=== PATIENT | female | born 1995 ===

== ENCOUNTER → 2017-01-05 | Outpatient (CLI) | payer OTHER ==
--- NOTE | 2017-01-05 18:52 | DIAGNOSTIC IMAGING REPORT ---
RIGHT KNEE 3 VIEWS CLINICAL HISTORY: Right knee pain following injury. COMPARISON: None FINDINGS: Alignment of the right knee is anatomic. There is no acute fracture. There is no joint effusion. Joint spaces are preserved. IMPRESSION: No acute fracture or joint effusion of the right knee. Electronically signed by: Gumaro Pickett M.D. 01/05/2017 6:51 PM Dictated Date/Time: 01/05/2017 6:50 PM
== END | disposition home or self-care (01) ==
LOC: C.RAD 17:16
PROVIDERS: ATTEND Family Medicine
DX: S89.91XA Unspecified injury of right lower leg, initial encounter (principal); X58.XXXA Exposure to other specified factors, initial encounter; O92.6 Galactorrhea

== ENCOUNTER → 2017-05-22 | Outpatient (CLI) | payer OTHER ==
[2017-05-22 15:37] LABS: BASO % 0.2 %; BASO ABS # 0.02 K/uL (0-0.2); COMPLETE YES; EOS % 1.8 %; HEMATOCRIT 39.4 % (37-47); IG% 0.2 %; LYMPH % 23.3 %; MEAN CELL VOLUME 80.7 fL (80-100); MEAN CORPUSCULAR HEMOGLOBIN 26.6 pg (25-34); MEAN PLATELET VOLUME 10.9 fL (7.4-10.4); MONO % 5.7 %; NEUT % 68.8 %; PLATELET COUNT 228 K/uL (130-400); RED BLOOD COUNT 4.88 M/uL (4.2-5.4); WHITE BLOOD COUNT 8.14 K/uL (4.8-10.8)
[2017-05-22 16:12] LABS: BLOOD UREA NITROGEN 9 mg/dl (7-18); BUN/CREATININE RATIO 13.3 (10-20); CALCIUM 8.6 mg/dl (8.5-10.1); CARBON DIOXIDE 25 mmol/L (21-32); CHLORIDE 106 mmol/L (98-107); CREATININE 0.65 mg/dl (0.60-1.20); GLUCOSE 83 mg/dl (70-99); GLUCOSE,FASTING 83 mg/dl (70-99); POTASSIUM 3.8 mmol/L (3.5-5.1); SODIUM 139 mmol/L (136-145)
[2017-05-22 16:22] LABS: CHOLESTEROL 189 mg/dl (0-200); CHOLESTEROL/HDL RATIO 3.9; HDL CHOLESTEROL 49 mg/dl; LDL CHOLESTEROL CALCULATED 127 mg/dl; TRIGLYCERIDES 67 mg/dl (0-150); VERY LOW DENSITY LIPOPROT CALC 13 mg/dl
== END | disposition home or self-care (01) ==
LOC: C.LAB 14:08
PROVIDERS: ATTEND Psychiatry & Neurology Psychiatry
DX: Z79.899 Other long term (current) drug therapy (principal); F32.9 Major depressive disorder, single episode, unspecified; F43.10 Post-traumatic stress disorder, unspecified; F90.2 Attention-deficit hyperactivity disorder, combined type

== ENCOUNTER 2017-12-17 11:02 | Observation (INO) | payer OTHER ==
[2017-12-17] VITALS (7 sets, daily range): BP systolic 105–165; BP diastolic 66–97; PULSE 85–105; TEMP 36.4–36.8; O2SAT 92–100; Ht 157.5 cm; Wt 123.0 kg
[~2017-12-17] VITALS: Ht 157.5 cm; Wt 123.0 kg
[2017-12-17] MEDS ORDERED: GLC/500 PO (11:25)
[2017-12-17] MEDS ORDERED: ARIP30TA3 PO (11:25)
[2017-12-17] MEDS ORDERED: CNC/36 PO (11:25)
--- NOTE | 2017-12-17 12:07 | EMERGENCY ROOM VISIT NOTE ---
ED Visit Note First contact with patient: 11:18 CHIEF COMPLAINT: Mascara tube in my bladder HISTORY OF PRESENT ILLNESS: This 22-year-old female patient presents to the emergency department approximately 10 hours after masturbating with a mascara tube. The patient states she was "messing with my urethra, when the mascara tube got inserted into the urethra and got stuck within the bladder. The patient states she is passing urine, and reports only mild suprapubic abdominal pain. She states there is no way could be in the vagina, and she is certain it is in the urethra/bladder. She continues to pass urine and stool. She denies any pain or pressure with urination. She denies any blood and she denies any bleeding or trauma. She denies history of similar incident in the past. REVIEW OF SYSTEMS: A 6 system review of systems was performed with positives and pertinent negatives listed in the history of present illness. All other systems were reviewed and are negative. ALLERGIES: Tree nuts MEDICATIONS: Metformin, Abilify, Concerta PMH: ADHD, PTSD, obesity, anxiety, depression SOCIAL HISTORY: The patient lives locally. She denies drug, alcohol, tobacco use. PHYSICAL EXAM: VITALS: Vitals are noted on the nurse's note and reviewed by myself. Vital signs stable. GENERAL: This is a 22-year-old black female, in no acute distress, nondiaphoretic, well-developed well-nourished. HEAD - NC/AT. NECK - Neck with FROM. Supple to. No lymphadenopathy noted. No nuchal rigidity. LUNGS - Chest wall symmetric without accessory muscle use, intercostals retractions, or central cyanosis. Normal vesicular breath sounds CTA B/L. No wheezes, rales, or rhonchi appreciated. CARDIAC - RRR with S1/S2. No murmur, rubs, or gallops appreciated. ABDOMEN - Abdominal contour without without pulsations or visible masses. BS normoactive all four quadrants. Mild suprapubic tenderness to palpation appreciated. No palpable masses, hepatosplenomegaly, or ascites noted. MONKEY KEEPER - (An RN nurse lost charge card clerk was present throughout the entire MONKEY KEEPER procedure.) SPECULUM EXAM: - Water-soluble lubricant was applied to the plastic speculum and inserted into the vagina in a downward fashion towards the location of the cervix. When resistance was met, the speculum was opened to visualize the cervix. The cervical os was closed and no drainage. No lesions, masses, or purulent discharge noted. No FB noted. The speculum was slowly removed to visualize the vaginal russell. No lesions, masses, or excoriations noted. Pt tolerated the procedure well and voiced no discomfort throughout the procedure. - URETHRA - No erythema, edema, discharge, or blood noted PSYCH - A&Ox3 and cooperates fully with examiner. Pt is very pleasant and interacts well with examiner. RADIOLOGY: KUB HISTORY: mascara tube (FB) (urethra?) COMPARISON: None. FINDINGS: The bowel gas pattern is unremarkable. There are no dilated loops of small bowel to suggest an obstruction. No renal calculi. No ureteral calculi. No pneumoperitoneum or pneumatosis. There is a 12.7 x 2.2 cm tube like foreign body overlying the mid pelvis. IMPRESSION: There is a 12.7 x 2.2 cm tube like foreign body overlying the mid pelvis. The exact location is difficult to confirm but could be within the bladder, rectum, or possibly the vagina. Electronically signed by: Mio Mooney M.D. 12/17/2017 12:06 PM Dictated Date/Time: 12/17/2017 12:[facility] NO IV/ORAL CONT (CT) CLINICAL HISTORY: Evaluate location of foreign body. TECHNIQUE: Multiaxial CT images of the pelvis performed without the use of contrast. COMPARISON STUDY: KUB 12/17/2017. FINDINGS: There is an 11 x 2 cm foreign body located entirely within the bladder. There is mild fast stranding adjacent to the left anterior bladder dome. However, there is no extraluminal fluid or gas to suggest a perforation at this time. No pelvic free fluid. The uterus and ovaries are unremarkable. No pelvic lymphadenopathy. Normal appendix. The visualized loops of bowel show no wall thickening or obstruction. IMPRESSION: An 11 x 2 cm foreign body located entirely within the bladder. There is mild fat stranding adjacent to the left anterior bladder dome. However, there is no extraluminal fluid or gas at this time to suggest a perforation. Electronically signed by: Mio Mooney M.D. 12/17/2017 1:02 PM Dictated Date/Time: 12/17/2017 12:52 PM EMERGENCY DEPARTMENT COURSE: The patient was seen and evaluated as above. Vaginal examination performed to verify no foreign body within the vagina. When no foreign body noted, KUB performed. This was reviewed by myself and Dr. Mooney as above. I did consult with Dr. Mooney regarding the need for further imaging and he did recommend a non-contrast CT scan of the pelvis to verify location of the FB. CT scan performed and reviewed by myself and the radiologist as above. I did discuss the findings with the patient. I consulted urology, and spoke with Dr. Dunham, who requested IV Rocephin, preop labs, and n.p.o. status for the patient. These were performed. The patient was seen and evaluated by Dr. Davidson from urology, who did take the patient to the operating room to remove the foreign body. Please see his dictation regarding further management and care. CBC did not show anemia, thrombocytopenia, or leukocytosis. No significant renal , hepatic, electrolyte abnormalities. Urine test was negative. Urinalysis was positive for 3+ blood, white blood cells, and epithelial cells. I did discuss the case with my attending. We were in agreement regarding the management and care. I attest that I have personally reviewed the patient's current medication list. Blood Pressure Screening: Patient was found to have a slightly elevated blood pressure due to circumstances. I do not believe that the patient requires hypertension monitoring. DIAGNOSIS: FB in the bladder The chart was completed utilizing [employer] Speech voice recognition software. Grammatical errors, random word insertions, pronoun errors, and incomplete sentences are an occasional consequence of this system due to software limitations, ambient noise, and hardware issues. Any formal questions or concerns about the content, text, or information contained within the body of this dictation should be directly addressed to the provider for clarification. Current/Historical Medications Scheduled Aripiprazole (Abilify), 30 MG PO DAILY Metformin Hcl (Glucophage), 500 MG PO DAILY Methylphenidate Hcl (Concerta), 72 MG PO DAILY Sulfa/Trimethoprim (Bactrim Ds 800MG/160MG), 1 TAB PO BID Scheduled PRN Oxycodone/Acetaminophen 5MG/325MG (Percocet 5MG/325MG), 1 TABLET PO Q4H PRN for Pain Phenazopyridine Hcl (Pyridium), 200 MG PO TID PRN for Bladder pain Allergies Coded Allergies: Nut Tree (Unverified Allergy, Unknown, anaphylaxis, 12/17/17) Vital Signs Date Time Temp Pulse Resp B/P (MAP) Pulse Ox O2 Delivery O2 Flow Rate FiO2 12/17/17 15:43 98 21 12/17/17 15:43 96 21 100 12/17/17 15:41 111/66 12/17/17 15:38 36.1 102 24 100/80 (86) 100 Oxymask 10 12/17/17 15:38 104 21 100/80 100 12/17/17 15:38 102 21 12/17/17 14:14 36.5 94 18 129/71 (90) 100 Room Air 12/17/17 14:04 84 18 130/87 99 12/17/17 13:06 89 18 138/96 99 Room Air 12/17/17 11:11 36.6 102 20 140/93 99 Room Air Laboratory Results 12/17/17 14:01 Red Blood Count 4.75, Mean Corpuscular Volume 80.4, Mean Corpuscular Hemoglobin 27.4, Mean Corpuscular Hemoglobin Concent 34.0, Mean Platelet Volume 10.5, Neutrophils (%) (Auto) 72.3, Lymphocytes (%) (Auto) 19.9, Monocytes (%) (Auto) 6.7, Eosinophils (%) (Auto) 0.5, Basophils (%) (Auto) 0.4, Neutrophils # (Auto) 7.77, Lymphocytes # (Auto) 2.14, Monocytes # (Auto) 0.72, Eosinophils # (Auto) 0.05, Basophils # (Auto) 0.04 12/17/17 14:01 Test 12/17/17 13:05 12/17/17 14:01 Urine Color YELLOW Urine Appearance CLOUDY (CLEAR) Urine pH 5.5 (4.5-7.5) Urine Specific [place] 1.012 (1.000-1.030) Urine Protein 2+ (NEG) Urine Glucose (UA) NEG (NEG) Urine Ketones NEG (NEG) Urine Occult Blood 3+ (NEG) Urine Nitrite NEG (NEG) Urine Bilirubin NEG (NEG) Urine Urobilinogen NEG (NEG) Urine Leukocyte Esterase SMALL (NEG) Urine WBC (Auto) 5-10 /hpf (0-5) Urine RBC (Auto) >30 /hpf (0-4) Urine Hyaline Casts (Auto) 1-5 /lpf (0-5) Urine Epithelial Cells (Auto) >30 /lpf (0-5) Urine Bacteria (Auto) NEG (NEG) Urine Renal Epithelial Cells /lpf (0-5) Urine Crystals AMORPHOUS SEDIMENT (NONE Urine Test NEG (NEG) White Blood Count 10.74 K/uL (4.8-10.8) Red Blood Count 4.75 M/uL (4.2-5.4) Hemoglobin 13.0 g/dL (12.0-16.0) Hematocrit 38.2 % (37-47) Mean Corpuscular Volume 80.4 fL (80-100) Mean Corpuscular Hemoglobin 27.4 pg (25-34) Mean Corpuscular Hemoglobin Concent 34.0 g/dl (32-36) Platelet Count 218 K/uL (130-400) Mean Platelet Volume 10.5 fL (7.4-10.4) Neutrophils (%) (Auto) 72.3 % Lymphocytes (%) (Auto) 19.9 % Monocytes (%) (Auto) 6.7 % Eosinophils (%) (Auto) 0.5 % Basophils (%) (Auto) 0.4 % Neutrophils # (Auto) 7.77 K/uL (1.4-6.5) Lymphocytes # (Auto) 2.14 K/uL (1.2-3.4) Monocytes # (Auto) 0.72 K/uL (0.11-0.59) Eosinophils # (Auto) 0.05 K/uL (0-0.5) Basophils # (Auto) 0.04 K/uL (0-0.2) RDW Standard Deviation 41.0 fL (36.4-46.3) RDW Coefficient of Variation 13.9 % (11.5-14.5) Immature Granulocyte % (Auto) 0.2 % Immature Granulocyte # (Auto) 0.02 K/uL (0.00-0.02) Anion Gap 6.0 mmol/L (3-11) Est Creatinine Clear Calc Drug Dose 175.3 ml/min Estimated GFR () 147.6 Estimated GFR (Non- 127.3 BUN/Creatinine Ratio 16.0 (10-20) Calcium Level 8.4 mg/dl (8.5-10.1) Total Bilirubin 0.5 mg/dl (0.2-1) Aspartate Amino Transf (AST/SGOT) 20 U/L (15-37) Alanine Aminotransferase (ALT/SGPT) 29 U/L (12-78) Alkaline Phosphatase 86 U/L (45-117) Total Protein 8.0 gm/dl (6.4-8.2) Albumin 3.3 gm/dl (3.4-5.0) Globulin 4.7 gm/dl (2.5-4.0) Albumin/Globulin Ratio 0.7 (0.9-2) Medications Administered Medications (Trade) Dose Ordered Sig/Farhana Route Start Time Stop Time Status Last Admin Dose Admin Ceftriaxone Sodium (Rocephin Inj) 1 gm NOW STAT IV 12/17/17 13:16 12/17/17 13:22 DC 12/17/17 13:37 1 GM Belladonna/Opium (B & O Adult Supp) 60 mg ONE ONCE UT 12/17/17 15:25 12/17/17 15:46 DC 12/17/17 15:25 60 MG Departure Information Impression Primary Impression: Foreign body in bladder Dispostion Admitted as an inpatient Condition GOOD Prescriptions Oxycodone/Acetaminophen 5MG/325MG (PERCOCET 5MG/325MG) Tab 1 TABLET PO Q4H Y for Pain, #10 TAB Prov: Rai Davidson MD, Urology 12/17/17 Phenazopyridine Hcl (PYRIDIUM) 200 Mg Tab 200 MG PO TID Y for Bladder pain, #21 TAB Prov: Rai Davidson MD, Urology 12/17/17 Sulfa/Trimethoprim (Bactrim Ds 800MG/160MG) Tab 1 TAB PO BID, #6 TAB Prov: Rai Davidson MD, Urology 12/17/17 Referrals No Doctor, Assigned (PCP) Patient Instructions [facility] Problem Qualifiers Primary Impression: Foreign body in bladder Encounter type: initial encounter Qualified Codes: T19.1XXA - Foreign body in bladder, initial encounter
--- NOTE | 2017-12-17 13:03 | DIAGNOSTIC IMAGING REPORT ---
[facility] CT NO IV/ORAL CONT (CT) CLINICAL HISTORY: Evaluate location of foreign body. TECHNIQUE: Multiaxial CT images of the pelvis performed without the use of contrast. COMPARISON STUDY: KUB 12/17/2017. FINDINGS: There is an 11 x 2 cm foreign body located entirely within the bladder. There is mild fast stranding adjacent to the left anterior bladder dome. However, there is no extraluminal fluid or gas to suggest a perforation at this time. No pelvic free fluid. The uterus and ovaries are unremarkable. No pelvic lymphadenopathy. Normal appendix. The visualized loops of bowel show no wall thickening or obstruction. IMPRESSION: An 11 x 2 cm foreign body located entirely within the bladder. There is mild fat stranding adjacent to the left anterior bladder dome. However, there is no extraluminal fluid or gas at this time to suggest a perforation. Electronically signed by: Mio Mooney M.D. 12/17/2017 1:02 PM Dictated Date/Time: 12/17/2017 12:52 PM
[2017-12-17] MEDS ORDERED: CEFTRIAXONE SOD INJ 1 GM ADDVIAL IV STA (13:16)
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
[2017-12-17] MEDS ORDERED: FENTANYL CITRATE INJ 50 MCG/1 ML 2 ML VIAL ONE (14:04)
[2017-12-17] MEDS ORDERED: PROPOFOL IV EMULSION 10 MG/ML 20 ML VIAL ONE ×4 (14:04→15:17)
[2017-12-17] MEDS ORDERED: MIDAZOLAM HCL 1 MG/ML 2ML VIAL ONE (14:04)
[2017-12-17] MEDS ORDERED: ONDANSETRON INJ 2 MG/ML 2 ML VIAL ONE (14:04)
[2017-12-17] MEDS ORDERED: LIDOCAINE HCL 2% 2 ML VIAL (20MG/ML) ONE (14:04)
[2017-12-17] MEDS ORDERED: DEXAMETHASONE SOD INJ 4 MG/ML VIAL ONE (14:04)
[2017-12-17 14:08] LABS: BASO % 0.4 %; BASO ABS # 0.04 K/uL (0-0.2); EOS % 0.5 %; EOS ABS # 0.05 K/uL (0-0.5); HEMATOCRIT 38.2 % (37-47); IG# 0.02 K/uL (0.00-0.02); LYMPH % 19.9 %; LYMPH ABS # 2.14 K/uL (1.2-3.4); MEAN CELL VOLUME 80.4 fL (80-100); MEAN CORPUSCULAR HEMOGLOBIN 27.4 pg (25-34); MEAN PLATELET VOLUME 10.5 fL (7.4-10.4); MONO % 6.7 %; MONO ABS # 0.72 K/uL (0.11-0.59); NEUT % 72.3 %; NEUT ABS # 7.77 K/uL (1.4-6.5); PLATELET COUNT 218 K/uL (130-400); RED CELL DISTRIBUTION WIDTH CV 13.9 % (11.5-14.5); WHITE BLOOD COUNT 10.74 K/uL (4.8-10.8)
[2017-12-17] MEDS ORDERED: SULF800T23 PO (14:16)
[2017-12-17] MEDS ORDERED: PHEN-775 PO (14:16)
[2017-12-17] MEDS ORDERED: OXYC-57 PO (14:16)
--- NOTE | 2017-12-17 14:18 | Discharge Instructions ---
Discharge Instructions Date of Service December 17, 2017. Admission Reason for Admission: FB In Bladder Discharge Discharge Diagnosis / Problem: FB in bladder Discharge Goals Goal(s): Decrease discomfort, Therapeutic intervention Activity Recommendations Activity Limitations: as noted below Lifting Limitations: no more than 25 pounds, gradually increase as tolerated Exercise/Sports Limitations: rest today, gradually increase as tolerated May Resume Sexual Activity: when tolerated Shower/Bathe: no limitations Driving or Machine Use: resume 1 day after discharge . Instructions / Follow-Up Instructions / Follow-Up Follow-up in our office at [facility] on January 09 at 2:15 PM for follow-up Current Hospital Diet Patient's current hospital diet: Discharge Diet Recommended Diet: Regular Diet (good fluid intake) Procedures Procedures Performed: Cystoscopy, removal of foreign body in bladder Pending Studies Studies pending at discharge: no Medical Emergencies . Who to Call and When: Medical Emergencies: If at any time you feel your situation is an emergency, please call 911 immediately. . Non-Emergent Contact Non-Emergency issues call your: Urologist Call Non-Emergent contact if: you have a fever, temperature is above 101, your pain is not controlled, your pain is worsening, your pain is unusual for you, your pain is concerning you, you have any medication questions . . "Provider Documentation" section prepared by Rai Davidson. . [place] Drug Monitoring Program Search Results: patient reviewed within database, no issues identified (no narcotic Rx provided)
[2017-12-17 14:27] LABS: ALBUMIN 3.3 gm/dl (3.4-5.0); CALCIUM 8.4 mg/dl (8.5-10.1); CREATININE 0.63 mg/dl (0.60-1.20); POTASSIUM 3.9 mmol/L (3.5-5.1)
[2017-12-17] MEDS ORDERED: ONDANSETRON INJ 2 MG/ML 2 ML VIAL IV PRN ×2 (14:30→15:45)
[2017-12-17] MEDS ORDERED: EpHEDrine SULFATE INJ 50 MG/ML AMP IV PRN (14:30)
[2017-12-17] MEDS ORDERED: ATROPINE SULFATE 0.1 MG/ML 5ML SYR IV PRN (14:30)
[2017-12-17] MEDS ORDERED: FENTANYL CITRATE INJ 50 MCG/1 ML 2 ML VIAL IV PRN (14:30)
[2017-12-17] MEDS ORDERED: BELLADONNA/OPIUM SUPP 60 MG SUPP PR ONE ×2 (15:22→15:25)
--- NOTE | 2017-12-17 15:33 | [facility] Operative Report ---
Operative Report Operative Date December 17, 2017. Pre-Operative Diagnosis Foreign Body in Bladder Post-Operative Diagnosis Foreign Body in Bladder Procedure(s) Performed Cystoscopy, removal of foreign body in bladder. Surgeon Dr Elbert Davidson Digital Product Specialist Surgeon(s) none Estimated Blood Loss Minimal Findings Large mascara tube removed intact from bladder, no evidence of bladder perforation although there are 2 areas of trauma where the tips of the tube were resting, one in the dome and one in the right bladder neck. Specimens Mascara tube for documentation Drains 16 [place] silicone Dodd with 10 cc of sterile water in the balloon Anesthesia Type MAC Complication(s) none Disposition yes Recovery Room / PACU Indications Patient is a 22-year-old female who presents due to a lost foreign body within the bladder. Please see urology consultation/H&P for further details. She has been covered with Rocephin via the emergency room. She is here for removal under anesthesia. SCDs are used for DVT prophylaxis. Consent obtained from the patient preoperatively. Description of Procedure Patient was properly identified and brought into the operative suite after identification for proper consent in the chart. Monitored anesthesia care with sedation was initiated and patient was prepped and draped in the standard fashion for this procedure, that is in a high lithotomy position. Full timeout procedure was followed. Bimanual examination demonstrated a foreign body angled as noted on imaging studies within the bladder. This had very little freedom of motion on attempts to milk it toward the urethra. 22 Tunisian rigid cystoscope was placed and bladder was distended allowing for visualization of the object. This was noted to be fairly well wedged into the right lateral bladder neck and with one tip in the dome. Bladder was distended to allow for further range of motion and the distal end was able to be navigated more centrally into the bladder neck. Attempts to milk it through the urethra met with resistance. Numerous maneuvers were undertaken including distention of the bladder upstream were undertaken until finally it was able to be grasped in the proximal urethra using a sponge stick and maneuvered out of the bladder. Cystoscope was replaced within the bladder and bladder was surveyed. No areas of alicia perforation were appreciated although an area of bladder trauma at the dome was noted. Numerous little flakes of metallic paint from the tube are present within the bladder and were grasped and irrigated free until no large pieces were present. No evidence of significant ureteral trauma was noted. Seen the presence of bladder trauma a 16 [place] Dodd catheter was placed with 10 cc of sterile water in the balloon. Anesthesia was reversed and a belladonna and opium suppository was provided for additional postoperative analgesia. Patient was transferred to the recovery room in stable condition. Follow-up instructions: Due to the lack of transport for the patient and apparently per hospital protocol 23 hour observation is required after provision of anesthesia. We will therefore admit the patient for this purpose. I attest to the content of the Intraoperative Record and any orders documented therein. Any exceptions are noted below.
[2017-12-17] MEDS ORDERED: LACTATED RINGER'S 1000ML 1,000 ML IV SCH (15:40)
[2017-12-17] MEDS ORDERED: ACETAMINOPHEN 325 MG TAB PO PRN (15:45)
[2017-12-17] MEDS ORDERED: OXYCODONE/ACETAMINOPHEN 5-325 TAB PO PRN (15:45)
[2017-12-17] MEDS ORDERED: PHENAZOPYRIDINE HCL 200 MG TAB PO PRN (15:45)
[2017-12-17] MEDS ORDERED: IBUPROFEN 600 MG TAB PO PRN (15:45)
[2017-12-17] MEDS ORDERED: IV FLUIDS COMPLETED PRN (16:15)
--- NOTE | 2017-12-17 16:41 | Anesthesiology Progress Note ---
Anesthesia Post Op Note Date & Time December 17, 2017 at 16:41 Vital Signs Pain Intensity: 2 Vital Signs Past 12 Hours Date Time Temp Pulse Resp B/P (MAP) Pulse Ox O2 Delivery O2 Flow Rate FiO2 12/17/17 16:03 101 19 99 12/17/17 16:03 100 19 12/17/17 16:01 98/61 12/17/17 15:58 91 20 12/17/17 15:58 91 20 99 12/17/17 15:56 129/72 12/17/17 15:55 37.4 87 19 129/72 (85) 98 Room Air Oxymask 12/17/17 15:53 87 17 12/17/17 15:53 89 17 99 12/17/17 15:51 114/62 12/17/17 15:48 92 19 12/17/17 15:48 92 19 98 12/17/17 15:46 124/72 12/17/17 15:43 98 21 12/17/17 15:43 96 21 100 12/17/17 15:41 111/66 12/17/17 15:38 36.1 102 24 100/80 (86) 100 Oxymask 10 12/17/17 15:38 104 21 100/80 100 12/17/17 15:38 102 21 12/17/17 14:14 36.5 94 18 129/71 (90) 100 Room Air 12/17/17 14:04 84 18 130/87 99 12/17/17 13:06 89 18 138/96 99 Room Air 12/17/17 11:11 36.6 102 20 140/93 99 Room Air Notes Mental Status: alert / awake / arousable, participated in evaluation Pt Amnestic to Procedure: Yes Nausea / Vomiting: adequately controlled Pain: adequately controlled Airway Patency, RR, SpO2: stable & adequate BP & HR: stable & adequate Hydration State: stable & adequate Anesthetic Complications: no major complications apparent
[2017-12-17] MEDS: METFORMIN HCL 500 MG TAB PO SCH (18:38)
[2017-12-17] MEDS ORDERED: NURSING VERBAL MED ORDER ONE (18:45)
[2017-12-17] MEDS: SULFAMETHOXAZOLE/TRIMETHOPRIM DS 800/160MG TAB PO SCH (21:42)
[2017-12-17] MEDS: DOCUSATE SODIUM 100 MG CAP PO SCH (21:42)
[2017-12-18 03:16] VITALS: BP 98/62; PULSE 82; TEMP 36.7; O2SAT 98
[2017-12-18 07:25] VITALS: BP 102/67; PULSE 84; TEMP 36.8; O2SAT 97
--- NOTE | 2017-12-18 08:15 | Progress Note ---
Subjective Date of Service: December 18, 2017. Subjective Pt evaluation today including: conversation w/ patient, physical exam, chart review, review of inpatient medication list Pain: Denies PO Intake: Susan PO Voiding: motley catheter in place (urine clear, concentrated) 22 yo female POD#1 s/p cysto, removal of FB. Kept overnight as no transport for patient per hospital protocol. No new complaints. Review of Systems Constitutional: No fever, No chills Eyes: No worsening of vision ENT: No hearing loss Respiratory: No sputum, No wheezing, No shortness of breath Cardiac: No chest pain Abdomen: No nausea, No vomiting Female : No hematuria Neurologic: No memory loss, No paralysis Heme: No clotting problems, No swollen lymph nodes Endo: No excessive thirst Skin: No new/changing skin lesions Objective Vital Signs Date Time Temp Pulse Resp B/P (MAP) Pulse Ox O2 Delivery O2 Flow Rate FiO2 12/18/17 07:25 36.8 84 18 102/67 (79) 97 Room Air 12/18/17 03:16 36.7 82 14 98/62 (74) 98 Room Air 12/17/17 23:55 Room Air 12/17/17 23:25 36.8 85 18 134/66 (88) 96 Room Air 12/17/17 20:02 36.8 88 18 141/87 (105) 96 Room Air 12/17/17 18:41 36.8 102 18 136/80 (98) 97 Room Air 12/17/17 17:45 36.4 85 16 165/97 (119) 100 Room Air 12/17/17 17:10 36.5 92 18 149/96 (113) 99 Room Air 12/17/17 16:56 36.5 105 16 105/70 92 Room Air 12/17/17 16:56 36.5 105 16 105/70 (82) 92 Room Air 12/17/17 16:40 36.5 105 18 105/70 (82) 92 Room Air 12/17/17 16:40 Room Air 12/17/17 16:03 101 19 99 12/17/17 16:03 100 19 12/17/17 16:01 98/61 12/17/17 15:58 91 20 12/17/17 15:58 91 20 99 12/17/17 15:56 129/72 12/17/17 15:55 37.4 87 19 129/72 (85) 98 Room Air Oxymask 12/17/17 15:53 87 17 12/17/17 15:53 89 17 99 12/17/17 15:51 114/62 12/17/17 15:48 92 19 12/17/17 15:48 92 19 98 12/17/17 15:46 124/72 12/17/17 15:43 98 21 12/17/17 15:43 96 21 100 12/17/17 15:41 111/66 12/17/17 15:38 36.1 102 24 100/80 (86) 100 Oxymask 10 12/17/17 15:38 104 21 100/80 100 12/17/17 15:38 102 21 12/17/17 14:14 36.5 94 18 129/71 (90) 100 Room Air 12/17/17 14:04 84 18 130/87 99 12/17/17 13:06 89 18 138/96 99 Room Air 12/17/17 11:11 36.6 102 20 140/93 99 Room Air Physical Exam General Appearance: no apparent distress, + obese ENT: normal ENT inspection, hearing grossly normal Neck: supple, no adenopathy Respiratory/Chest: no respiratory distress, no accessory muscle use Cardiovascular: no JVD Abdomen: non tender, soft Extremities: non-tender Neurologic/Psychiatric: alert, oriented x 3 Skin: normal color Laboratory Results Last 24 Hours Test 12/17/17 13:05 12/17/17 14:01 Urine Color YELLOW Urine Appearance CLOUDY Urine pH 5.5 Urine Specific [place] 1.012 Urine Protein 2+ Urine Glucose (UA) NEG Urine Ketones NEG Urine Occult Blood 3+ Urine Nitrite NEG Urine Bilirubin NEG Urine Urobilinogen NEG Urine Leukocyte Esterase SMALL Urine WBC (Auto) 5-10 /hpf Urine RBC (Auto) >30 /hpf Urine Hyaline Casts (Auto) 1-5 /lpf Urine Epithelial Cells (Auto) >30 /lpf Urine Bacteria (Auto) NEG Urine Renal Epithelial Cells /lpf Urine Crystals AMORPHOUS SEDIMENT Urine Test NEG White Blood Count 10.74 K/uL Red Blood Count 4.75 M/uL Hemoglobin 13.0 g/dL Hematocrit 38.2 % Mean Corpuscular Volume 80.4 fL Mean Corpuscular Hemoglobin 27.4 pg Mean Corpuscular Hemoglobin Concent 34.0 g/dl Platelet Count 218 K/uL Mean Platelet Volume 10.5 fL Neutrophils (%) (Auto) 72.3 % Lymphocytes (%) (Auto) 19.9 % Monocytes (%) (Auto) 6.7 % Eosinophils (%) (Auto) 0.5 % Basophils (%) (Auto) 0.4 % Neutrophils # (Auto) 7.77 K/uL Lymphocytes # (Auto) 2.14 K/uL Monocytes # (Auto) 0.72 K/uL Eosinophils # (Auto) 0.05 K/uL Basophils # (Auto) 0.04 K/uL RDW Standard Deviation 41.0 fL RDW Coefficient of Variation 13.9 % Immature Granulocyte % (Auto) 0.2 % Immature Granulocyte # (Auto) 0.02 K/uL Sodium Level 137 mmol/L Potassium Level 3.9 mmol/L Chloride Level 104 mmol/L Carbon Dioxide Level 27 mmol/L Anion Gap 6.0 mmol/L Blood Urea Nitrogen 10 mg/dl Creatinine 0.63 mg/dl Est Creatinine Clear Calc Drug Dose 175.3 ml/min Estimated GFR () 147.6 Estimated GFR (Non- 127.3 BUN/Creatinine Ratio 16.0 Random Glucose 92 mg/dl Calcium Level 8.4 mg/dl Total Bilirubin 0.5 mg/dl Aspartate Amino Transf (AST/SGOT) 20 U/L Alanine Aminotransferase (ALT/SGPT) 29 U/L Alkaline Phosphatase 86 U/L Total Protein 8.0 gm/dl Albumin 3.3 gm/dl Globulin 4.7 gm/dl Albumin/Globulin Ratio 0.7 Assessment and Plan A/P 22 yo female POD#1 s/p cysto, removal of FB in bladder. Doing well. DC with Bactrim, Pyridium, Percocet. DC motley today. Worrisome signs and symptoms of occult bladder injury reviewed - none noted in OR yesterday. Outpatient follow-up in place. DC instructions reviewed, contact our service with questions. Discharge planning: home
[2017-12-18] MEDS: SULFAMETHOXAZOLE/TRIMETHOPRIM DS 800/160MG TAB PO SCH (08:28)
[2017-12-18] MEDS: DOCUSATE SODIUM 100 MG CAP PO SCH (08:28)
[2017-12-18] MEDS: METFORMIN HCL 500 MG TAB PO SCH (08:29)
[2017-12-18] MEDS ORDERED: ARIPIprazole TAB 15 MG TAB PO SCH (09:00)
--- NOTE | 2017-12-18 10:35 | Anesthesiology Progress Note ---
Anesthesia Post Op Note Date & Time December 18, 2017 at 10:35 Vital Signs Pain Intensity: 0.0 Vital Signs Past 12 Hours Date Time Temp Pulse Resp B/P (MAP) Pulse Ox O2 Delivery O2 Flow Rate FiO2 12/18/17 07:25 36.8 84 18 102/67 (79) 97 Room Air 12/18/17 03:16 36.7 82 14 98/62 (74) 98 Room Air 12/17/17 23:55 Room Air 12/17/17 23:25 36.8 85 18 134/66 (88) 96 Room Air Notes Mental Status: alert / awake / arousable, participated in evaluation Pt Amnestic to Procedure: Yes Nausea / Vomiting: adequately controlled Pain: adequately controlled Airway Patency, RR, SpO2: stable & adequate BP & HR: stable & adequate Hydration State: stable & adequate Anesthetic Complications: no major complications apparent
--- NOTE | 2017-12-18 10:35 | Anesthesiology Progress Note ---
Anesthesia Post Op Note Date & Time December 18, 2017 at 10:34 Vital Signs Pain Intensity: 0.0 Vital Signs Past 12 Hours Date Time Temp Pulse Resp B/P (MAP) Pulse Ox O2 Delivery O2 Flow Rate FiO2 12/18/17 07:25 36.8 84 18 102/67 (79) 97 Room Air 12/18/17 03:16 36.7 82 14 98/62 (74) 98 Room Air 12/17/17 23:55 Room Air 12/17/17 23:25 36.8 85 18 134/66 (88) 96 Room Air Notes Mental Status: alert / awake / arousable, participated in evaluation Pt Amnestic to Procedure: Yes Nausea / Vomiting: adequately controlled Pain: adequately controlled Airway Patency, RR, SpO2: stable & adequate BP & HR: stable & adequate Hydration State: stable & adequate Anesthetic Complications: no major complications apparent
[2017-12-18 12:53] VITALS: BP 102/67; PULSE 84; TEMP 36.8; O2SAT 97
--- NOTE | 2017-12-18 13:49 | Progress Note ---
Subjective Date of Service: December 18, 2017. Subjective Pt evaluation today including: conversation w/ patient, physical exam, chart review Voiding: no voiding problems no subjective complaints - no dysuria - hungry and wants to go home Review of Systems Constitutional: No see HPI, No fever, No chills, No sweats, No weight loss, No weakness, No fatigue, No problem reported Respiratory: No see HPI, No cough, No sputum, No wheezing, No shortness of breath, No dyspnea on exertion, No dyspnea at rest, No hemoptysis, No problem reported Cardiac: No see HPI, No chest pain, No orthopnea, No PND, No edema, No claudication, No palpitations, No problem reported Abdomen: No see HPI, No pain, No nausea, No vomiting, No diarrhea, No constipation, No GI bleeding, No problem reported Objective Vital Signs Date Time Temp Pulse Resp B/P (MAP) Pulse Ox O2 Delivery O2 Flow Rate FiO2 12/18/17 12:53 36.8 84 18 97 Room Air 12/18/17 08:12 Room Air 12/18/17 07:25 36.8 84 18 102/67 (79) 97 Room Air 12/18/17 03:16 36.7 82 14 98/62 (74) 98 Room Air 12/17/17 23:55 Room Air 12/17/17 23:25 36.8 85 18 134/66 (88) 96 Room Air 12/17/17 20:02 36.8 88 18 141/87 (105) 96 Room Air 12/17/17 18:41 36.8 102 18 136/80 (98) 97 Room Air 12/17/17 17:45 36.4 85 16 165/97 (119) 100 Room Air 12/17/17 17:10 36.5 92 18 149/96 (113) 99 Room Air 12/17/17 16:56 36.5 105 16 105/70 92 Room Air 12/17/17 16:56 36.5 105 16 105/70 (82) 92 Room Air 12/17/17 16:40 36.5 105 18 105/70 (82) 92 Room Air 12/17/17 16:40 Room Air 12/17/17 16:03 101 19 99 12/17/17 16:03 100 19 12/17/17 16:01 98/61 12/17/17 15:58 91 20 5/7/18 15:58 91 20 99 12/17/17 15:56 129/72 12/17/17 15:55 37.4 87 19 129/72 (85) 98 Room Air Oxymask 12/17/17 15:53 87 17 12/17/17 15:53 89 17 99 12/17/17 15:51 114/62 12/17/17 15:48 92 19 12/17/17 15:48 92 19 98 12/17/17 15:46 124/72 12/17/17 15:43 98 21 12/17/17 15:43 96 21 100 12/17/17 15:41 111/66 12/17/17 15:38 36.1 102 24 100/80 (86) 100 Oxymask 10 12/17/17 15:38 104 21 100/80 100 12/17/17 15:38 102 21 12/17/17 14:14 36.5 94 18 129/71 (90) 100 Room Air 12/17/17 14:04 84 18 130/87 99 Physical Exam General Appearance: no apparent distress Eyes: normal inspection ENT: hearing grossly normal Neck: no adenopathy Respiratory/Chest: no respiratory distress, no accessory muscle use Abdomen: soft Laboratory Results Last 24 Hours Test 12/17/17 14:01 White Blood Count 10.74 K/uL Red Blood Count 4.75 M/uL Hemoglobin 13.0 g/dL Hematocrit 38.2 % Mean Corpuscular Volume 80.4 fL Mean Corpuscular Hemoglobin 27.4 pg Mean Corpuscular Hemoglobin Concent 34.0 g/dl Platelet Count 218 K/uL Mean Platelet Volume 10.5 fL Neutrophils (%) (Auto) 72.3 % Lymphocytes (%) (Auto) 19.9 % Monocytes (%) (Auto) 6.7 % Eosinophils (%) (Auto) 0.5 % Basophils (%) (Auto) 0.4 % Neutrophils # (Auto) 7.77 K/uL Lymphocytes # (Auto) 2.14 K/uL Monocytes # (Auto) 0.72 K/uL Eosinophils # (Auto) 0.05 K/uL Basophils # (Auto) 0.04 K/uL RDW Standard Deviation 41.0 fL RDW Coefficient of Variation 13.9 % Immature Granulocyte % (Auto) 0.2 % Immature Granulocyte # (Auto) 0.02 K/uL Sodium Level 137 mmol/L Potassium Level 3.9 mmol/L Chloride Level 104 mmol/L Carbon Dioxide Level 27 mmol/L Anion Gap 6.0 mmol/L Blood Urea Nitrogen 10 mg/dl Creatinine 0.63 mg/dl Est Creatinine Clear Calc Drug Dose 175.3 ml/min Estimated GFR () 147.6 Estimated GFR (Non- 127.3 BUN/Creatinine Ratio 16.0 Random Glucose 92 mg/dl Calcium Level 8.4 mg/dl Total Bilirubin 0.5 mg/dl Aspartate Amino Transf (AST/SGOT) 20 U/L Alanine Aminotransferase (ALT/SGPT) 29 U/L Alkaline Phosphatase 86 U/L Total Protein 8.0 gm/dl Albumin 3.3 gm/dl Globulin 4.7 gm/dl Albumin/Globulin Ratio 0.7 Assessment and Plan POD #1 s/p extraction of a foreign body from the bladder - d/c home - f/u as outpt Discharge planning: home
== END 2017-12-18 14:47 | disposition home or self-care (01) ==
LOC: C.EDB 11:04 → C.MSW 15:45 → ENRESERV 16:24
PROVIDERS: ADMIT Urology; ATTEND Urology
DX: T19.1XXA Foreign body in bladder, initial encounter (principal); X58.XXXA Exposure to other specified factors, initial encounter; F90.9 Attention-deficit hyperactivity disorder, unspecified type; F43.10 Post-traumatic stress disorder, unspecified; E66.01 Morbid (severe) obesity due to excess calories; Z91.010 Allergy to peanuts; Z79.84 Long term (current) use of oral hypoglycemic drugs; Z79.899 Other long term (current) drug therapy